=== PATIENT | male | born 1945 | race Caucasian/White ===

== ENCOUNTER → 2016-12-03 | Outpatient (CLI) | payer MEDICARE ==
[2016-12-03 16:20] LABS: ABSOLUTE BASOPHILS # (AUTO) 0.1 10^3/uL (0.0-0.2); ABSOLUTE EOSINOPHILS # (AUTO) 0.2 10^3/uL (0.0-0.6); ABSOLUTE LYMPHOCYTES (AUTO) 1.5 10^3/uL (0.5-4.7); ABSOLUTE MONOCYTES (AUTO) 0.6 10^3/uL (0.1-1.4); ABSOLUTE NEUT (AUTO) 5.6 10^3/uL (1.7-8.2); HEMATOCRIT 45.6 % (37.9-51.0); HEMOGLOBIN 15.4 g/dL (13.5-17.0); HGB HCT DIFFERENCE 0.6; LYMPHOCYTES % (AUTO) 19.2 % (13-45); MEAN CORPUSCULAR HEMOGLOBIN 29.6 pg (27.0-33.4); MEAN CORPUSCULAR HGB CONC 33.8 g/dL (32.0-36.0); MEAN CORPUSCULAR VOLUME 87 fl (80-97); MONOCYTES % (AUTO) 7.3 % (3-13); RED BLOOD COUNT 5.21 10^6/uL (4.35-5.55); RED CELL DISTRIBUTION WIDTH 15.3 % (11.5-14.0); SEGMENTED NEUTROPHILS % (AUTO) 69.5 % (42-78); WHITE BLOOD COUNT 8.1 10^3/uL (4.0-10.5)
[2016-12-03 16:34] LABS: APPEARANCE,URINE CLEAR; BILIRUBIN,URINE NEGATIVE (NEGATIVE); GLUCOSE, URINE NEGATIVE (NEGATIVE); KETONES,URINE NEGATIVE (NEGATIVE); LEUKOCYTE ESTERASE,URINE NEGATIVE (NEGATIVE); NITRITE,URINE NEGATIVE (NEGATIVE); PROTEIN,URINE NEGATIVE (NEGATIVE); URINE SPECIFIC GRAVITY 1.013; UROBILINOGEN,URINE NEGATIVE mg/dL (<2.0)
[2016-12-03 16:43] LABS: ALBUMIN 4.2 g/dL (3.5-5.0); ANION GAP 15 (5-19); BLOOD UREA NITROGEN 39 mg/dL (7-20); CALCIUM 9.9 mg/dL (8.4-10.2); CARBON DIOXIDE 25 mmol/L (22-30); CHLORIDE 103 mmol/L (98-107); CHOLESTEROL 162.83 mg/dL (0-200); CREATININE RESULT 1.96 mg/dL (0.52-1.25); Direct HDL 46 mg/dL (>40); GLUCOSE 137 mg/dL (75-110); PHOSPHORUS 3.7 mg/dL (2.5-4.5); SODIUM 142.5 mmol/L (137-145); TRIGLYCERIDES 168 mg/dL (<150); URIC ACID 7.5 mg/dL (3.5-8.5)
[2016-12-03 16:54] LABS: DIRECT LDL 96 mg/dL (<100)
[2016-12-03 16:59] LABS: VLDL CHOLESTEROL 33.6 mg/dL (10-31)
[2016-12-03 17:12] LABS: THYROID STIMULATING HORMONE 1.7 uIU/mL (0.47-4.68)
[2016-12-05 07:38] LABS: CREATININE URINE 94.2 mg/dL (Not Estab.)
[2016-12-05 10:10] LABS: MICROALBUMIN URINE <3.0 ug/mL (Not Estab.)
[2016-12-06 07:57] LABS: PTH INTACT 63 pg/mL (15-65)
[2016-12-06 13:22] LABS: VITAMIN D 25-HYDROXY 32.7 ng/mL (30.0-100.0)
== END ==
LOC: OD 14:48
PROVIDERS: ATTEND Internal Medicine Nephrology
DX: N18.3 Chronic kidney disease, stage 3 (moderate) (principal); E29.1 Testicular hypofunction; E03.9 Hypothyroidism, unspecified; E79.0 Hyperuricemia without signs of inflammatory arthritis and tophaceous disease
CPT/HCPCS: 36415; 80048; 80061; 81001; 82040; 82043; 82306; 82570; 83970; 84100; 84402; 84403; 84439; 84443; 84550; 85025

== ENCOUNTER → 2017-01-07 | Outpatient (CLI) | payer MEDICARE ==
[2017-01-07 13:30] LABS: ANION GAP 12 (5-19); BLOOD UREA NITROGEN 27 mg/dL (7-20); CALCIUM 9.7 mg/dL (8.4-10.2); CARBON DIOXIDE 26 mmol/L (22-30); CHLORIDE 101 mmol/L (98-107); CREATININE RESULT 1.92 mg/dL (0.52-1.25); GLUCOSE 145 mg/dL (75-110); POTASSIUM 4.8 mmol/L (3.6-5.0); SODIUM 139.3 mmol/L (137-145)
== END ==
LOC: OD 11:34
PROVIDERS: ATTEND Internal Medicine Nephrology
DX: N17.9 Acute kidney failure, unspecified (principal)
CPT/HCPCS: 36415; 80048

== ENCOUNTER → 2017-01-19 | Outpatient (CLI) | payer MEDICARE ==
--- NOTE | 2017-01-19 15:09 | RADIOLOGY REPORT (SQ) ---
EXAM DESCRIPTION: U/S RETROPERITON (RENAL/AORTA) COMPLETED DATE/TIME: 01/19/2017 2:46 pm REASON FOR STUDY: ACUTE ON CHRONIC RENAL FAILURE/CKD STAGE 3 N18.3 CHRONIC KIDNEY DISEASE, STAGE 3 (MODERATE) N17.9 ACUTE KIDNEY FAILURE, UNSPECIFIED COMPARISON: None. TECHNIQUE: Dynamic and static grayscale images acquired of the kidneys and bladder and recorded on P ACS. Additional selected color Doppler and spectral images recorded. LIMITATIONS: Body habitus. FINDINGS: RIGHT KIDNEY: Normal size. Increased cortical echogenicity. No solid or suspicious masses. No hydronephrosis. No calcifications. LEFT KIDNEY: Normal size. Increased cortical echogenicity. No solid or suspicious masses. No hydrone phrosis. No calcifications. BLADDER: No masses. OTHER: No other significant finding. IMPRESSION: CHRONIC MEDICAL RENAL DISEASE. NO HYDRONEPHROSIS. TECHNICAL DOCUMENTATION: JOB ID: [id number] [employer]- All Rights Reserved
== END ==
LOC: RAD 13:49
PROVIDERS: ATTEND Internal Medicine Nephrology
DX: N17.9 Acute kidney failure, unspecified (principal); N18.3 Chronic kidney disease, stage 3 (moderate)
CPT/HCPCS: 76770

== ENCOUNTER → 2017-02-12 | Outpatient (CLI) | payer MEDICARE ==
[2017-02-12 12:54] LABS: ANION GAP 12 (5-19); BLOOD UREA NITROGEN 22 mg/dL (7-20); CALCIUM 9.8 mg/dL (8.4-10.2); CARBON DIOXIDE 24 mmol/L (22-30); CHLORIDE 105 mmol/L (98-107); GLUCOSE 160 mg/dL (75-110); POTASSIUM 5.1 mmol/L (3.6-5.0); SODIUM 141.1 mmol/L (137-145)
== END ==
LOC: OD 10:44
PROVIDERS: ATTEND Internal Medicine Nephrology
DX: N17.9 Acute kidney failure, unspecified (principal); N18.3 Chronic kidney disease, stage 3 (moderate)
CPT/HCPCS: 36415; 80048

== ENCOUNTER → 2017-05-17 | Outpatient (CLI) | payer MEDICARE ==
[2017-05-17 17:05] LABS: ALANINE AMINOTRANSFERASE 42 U/L (21-72); ALBUMIN 4.2 g/dL (3.5-5.0); ALKALINE PHOSPHATASE 85 U/L (38-126); ANION GAP 11 (5-19); ASPARTATE AMINO TRANSFERASE 37 U/L (17-59); BILIRUBIN,DIRECT 0.6 mg/dL (0.0-0.4); BILIRUBIN,TOTAL 0.9 mg/dL (0.2-1.3); BLOOD UREA NITROGEN 30 mg/dL (7-20); CALCIUM 10.4 mg/dL (8.4-10.2); CARBON DIOXIDE 24 mmol/L (22-30); CHLORIDE 103 mmol/L (98-107); CREATININE RESULT 1.72 mg/dL (0.52-1.25); Direct HDL 46 mg/dL (>40); GLUCOSE 113 mg/dL (75-110); POTASSIUM 5.8 mmol/L (3.6-5.0); SODIUM 138.3 mmol/L (137-145); TOTAL PROTEIN 7.8 g/dL (6.3-8.2); TRIGLYCERIDES 130 mg/dL (<150); URIC ACID 7.3 mg/dL (3.5-8.5)
[2017-05-17 17:16] LABS: DIRECT LDL 100 mg/dL (<100)
[2017-05-17 17:32] LABS: THYROID STIMULATING HORMONE 1.69 uIU/mL (0.47-4.68)
[2017-05-20 07:05] LABS: TESTOSTERONE FREE (DIRECT) 11.6 pg/mL (6.6-18.1)
== END ==
LOC: OD 14:51
PROVIDERS: ATTEND Internal Medicine Nephrology
DX: N18.3 Chronic kidney disease, stage 3 (moderate) (principal); R73.03 Prediabetes; M10.9 Gout, unspecified; E29.1 Testicular hypofunction
CPT/HCPCS: 36415; 80053; 80061; 82043; 82570; 83036; 84402; 84403; 84439; 84443; 84550

== ENCOUNTER → 2017-05-18 | Outpatient (CLI) | payer MEDICARE | LOC: OD 16:42 | PROVIDERS: ATTEND Internal Medicine Nephrology | DX: E87.5 Hyperkalemia (principal) | CPT/HCPCS: 36415; 84132 ==

== ENCOUNTER → 2017-11-18 | Outpatient (CLI) | payer MEDICARE ==
[2017-11-18 15:45] LABS: ABSOLUTE BASOPHILS # (AUTO) 0.1 10^3/uL (0.0-0.2); ABSOLUTE EOSINOPHILS # (AUTO) 0.2 10^3/uL (0.0-0.6); ABSOLUTE MONOCYTES (AUTO) 0.7 10^3/uL (0.1-1.4); ABSOLUTE NEUT (AUTO) 4.8 10^3/uL (1.7-8.2); BASOPHILS % (AUTO) 0.8 % (0-2); EOSINOPHILS % (AUTO) 2.8 % (0-6); HEMATOCRIT 45.7 % (37.9-51.0); HEMOGLOBIN 15.2 g/dL (13.5-17.0); LYMPHOCYTES % (AUTO) 25.9 % (13-45); MEAN CORPUSCULAR HEMOGLOBIN 28.7 pg (27.0-33.4); MEAN CORPUSCULAR HGB CONC 33.2 g/dL (32.0-36.0); MEAN CORPUSCULAR VOLUME 87 fl (80-97); MONOCYTES % (AUTO) 8.4 % (3-13); PLATELET COUNT 209 10^3/uL (150-450); RED BLOOD COUNT 5.28 10^6/uL (4.35-5.55); RED CELL DISTRIBUTION WIDTH 15.3 % (11.5-14.0); SEGMENTED NEUTROPHILS % (AUTO) 62.1 % (42-78); TOTAL CELLS COUNTED % (AUTO) 100 %; WHITE BLOOD COUNT 7.8 10^3/uL (4.0-10.5)
[2017-11-18 16:17] LABS: ALANINE AMINOTRANSFERASE 48 U/L (21-72); ALBUMIN 4.1 g/dL (3.5-5.0); ALKALINE PHOSPHATASE 83 U/L (38-126); ANION GAP 9 (5-19); ASPARTATE AMINO TRANSFERASE 32 U/L (17-59); BILIRUBIN,DIRECT 0.3 mg/dL (0.0-0.4); BILIRUBIN,TOTAL 0.5 mg/dL (0.2-1.3); BLOOD UREA NITROGEN 21 mg/dL (7-20); CALCIUM 10.2 mg/dL (8.4-10.2); CARBON DIOXIDE 31 mmol/L (22-30); CHLORIDE 101 mmol/L (98-107); CHOLESTEROL 157.02 mg/dL (0-200); GLUCOSE 133 mg/dL (75-110); POTASSIUM 5.2 mmol/L (3.6-5.0); SODIUM 141.2 mmol/L (137-145); TOTAL PROTEIN 7.4 g/dL (6.3-8.2); TRIGLYCERIDES 185 mg/dL (<150)
[2017-11-18 16:27] LABS: DIRECT LDL 83 mg/dL (<100)
[2017-11-18 16:39] LABS: FREE T4 (FREE THYROXINE) 1.2 ng/dL (0.78-2.19)
[2017-11-18 16:53] LABS: THYROID STIMULATING HORMONE 2.13 uIU/mL (0.47-4.68)
[2017-11-20 09:37] LABS: CREATININE URINE 115.8 mg/dL (Not Estab.)
[2017-11-20 10:38] LABS: MICROALBUMIN URINE <3.0 ug/mL (Not Estab.)
[2017-11-21 07:12] LABS: TESTOSTERONE FREE (DIRECT) 13.5 pg/mL (6.6-18.1)
== END ==
LOC: OD 14:14
PROVIDERS: ATTEND Internal Medicine Nephrology
DX: E03.9 Hypothyroidism, unspecified (principal); E78.1 Pure hyperglyceridemia; E29.1 Testicular hypofunction; N18.9 Chronic kidney disease, unspecified; R73.03 Prediabetes
CPT/HCPCS: 82043; 82570; 36415; 84439; 84443; 84403; 85025; 80053; 84402; 83036; 80061; G0103

== ENCOUNTER → 2018-03-03 | Outpatient (CLI) | payer BC, MEDICARE ==
--- NOTE | 2018-03-03 16:55 | RADIOLOGY REPORT (SQ) ---
EXAM DESCRIPTION: CT CHEST WITHOUT COMPLETED DATE/TIME: 03/03/2018 1:47 pm REASON FOR STUDY: OTHER NONSPECIFIC ABNORMAL FINDING OF LUNG FIELD R91.8 OTHER NONSPECIFIC ABNORMAL FINDING OF LUNG FIELD COMPARISON: None. TECHNIQUE: CT scan performed of the chest without intravenous contrast. Images reviewed with lung, soft tissue and bone windows. Reconstructed coronal and sagittal MPR images reviewed. All images st ored on PACS. All CT scanners at this facility use dose modulation, iterative reconstruction, and/or weight based d osing when appropriate to reduce radiation dose to as low as reasonably achievable (ALARA). [facility]: Dose Right [facility]: CareDose [facility]: Dose Right [facility]: Teradose 4D [facility]: [employer] RADIATION DOSE: CT Rad equipment meets quality standard of care and radiation dose reduction techniq ues were employed. CTDIvol: 19.5 mGy. DLP: 768 mGy-cm. mGy. LIMITATIONS: No technical limitations. FINDINGS: LUNGS AND PLEURA: Minimal increased interstitial markings around the periphery of both garett gs likely mild pulmonary fibrosis. No acute infiltrates. No worrisome pulmonary nodules. No pleural effusion. No pneumothorax. HILAR AND MEDIASTINAL STRUCTURES: No identified masses or abnormal nodes. No obvious aneurysm. HEART AND VASCULAR STRUCTURES: No aneurysm. No pericardial effusion. Mild coronary artery calcifica tions UPPER ABDOMEN: Not well seen THYROID AND OTHER SOFT TISSUES: No masses. No adenopathy. BONES: There is an old healed fracture in the right posterior 6th rib with bulky bony spurring and de nse bony sclerosis on axial image 49. This could project as a lung nodule over the right upper lobe HARDWARE: None in the chest. OTHER: No other significant findings. IMPRESSION: Bony sclerosis along the right posterior 6th rib/costovertebral joint related to old hea led fracture. TECHNICAL DOCUMENTATION: JOB ID: [id number] Quality ID # [id number]: Final reports with documentation of one or more dose reduction techniques (e.g., Au tomated exposure control, adjustment of the mA and/or kV according to patient size, use of iterative reconstruction technique) 2010 [employer]- All Rights Reserved Reading location - IP/workstation name: [email or web address]
== END ==
LOC: RAD 13:13
PROVIDERS: ATTEND Internal Medicine Critical Care Medicine
DX: R91.8 Other nonspecific abnormal finding of lung field (principal)
CPT/HCPCS: 71250

== ENCOUNTER → 2018-05-09 | Outpatient (CLI) | payer MEDICARE | LOC: OD 16:37 | PROVIDERS: ATTEND Internal Medicine Nephrology | DX: E87.5 Hyperkalemia (principal) | CPT/HCPCS: 36415; 84132 ==

== ENCOUNTER → 2018-11-16 | Outpatient (CLI) | payer MEDICARE ==
[2018-11-16 13:24] LABS: ALANINE AMINOTRANSFERASE 39 U/L (21-72); ALKALINE PHOSPHATASE 84 U/L (38-126); ANION GAP 9 (5-19); ASPARTATE AMINO TRANSFERASE 28 U/L (17-59); BILIRUBIN,DIRECT 0.3 mg/dL (0.0-0.4); BILIRUBIN,TOTAL 0.5 mg/dL (0.2-1.3); BLOOD UREA NITROGEN 26 mg/dL (7-20); CALCIUM 9.9 mg/dL (8.4-10.2); CARBON DIOXIDE 27 mmol/L (22-30); CHLORIDE 102 mmol/L (98-107); CHOLESTEROL 129.59 mg/dL (0-200); GLUCOSE 114 mg/dL (75-110); PHOSPHORUS 3.5 mg/dL (2.5-4.5); POTASSIUM 4.8 mmol/L (3.6-5.0); SODIUM 137.9 mmol/L (137-145); TOTAL PROTEIN 7.7 g/dL (6.3-8.2); TRIGLYCERIDES 121 mg/dL (<150)
[2018-11-16 13:35] LABS: DIRECT LDL 84 mg/dL (<100)
[2018-11-16 13:40] LABS: FREE T4 (FREE THYROXINE) 1.39 ng/dL (0.78-2.19)
[2018-11-16 13:54] LABS: THYROID STIMULATING HORMONE 2.02 uIU/mL (0.47-4.68)
[2018-11-16 16:24] LABS: APPEARANCE,URINE CLEAR; BILIRUBIN,URINE NEGATIVE (NEGATIVE); COLOR,URINE YELLOW; GLUCOSE, URINE NEGATIVE (NEGATIVE); KETONES,URINE NEGATIVE (NEGATIVE); LEUKOCYTE ESTERASE,URINE NEGATIVE (NEGATIVE); NITRITE,URINE NEGATIVE (NEGATIVE); PROTEIN,URINE NEGATIVE (NEGATIVE); URINE SPECIFIC GRAVITY 1.017; UROBILINOGEN,URINE NEGATIVE mg/dL (<2.0)
[2018-11-17 13:00] LABS: TESTOSTERONE FREE (DIRECT) 15.9 pg/mL (6.6-18.1)
[2018-11-18 10:37] LABS: CREATININE URINE 129.3 mg/dL (Not Estab.)
[2018-11-19 07:45] LABS: MICROALBUMIN URINE <3.0 ug/mL (Not Estab.)
== END ==
LOC: OD 12:27
PROVIDERS: ATTEND Internal Medicine Nephrology
DX: N18.3 Chronic kidney disease, stage 3 (moderate) (principal); R73.03 Prediabetes; E78.1 Pure hyperglyceridemia; E29.1 Testicular hypofunction; E03.9 Hypothyroidism, unspecified
CPT/HCPCS: 36415; 80053; 80061; 81001; 82043; 82306; 82570; 83036; 83970; 84100; 84402; 84403; 84439; 84443

== ENCOUNTER → 2019-05-25 | Outpatient (CLI) | payer MEDICARE ==
[2019-05-25 13:46] LABS: ABSOLUTE BASOPHILS # (AUTO) 0.1 10^3/uL (0.0-0.2); ABSOLUTE EOSINOPHILS # (AUTO) 0.2 10^3/uL (0.0-0.6); ABSOLUTE LYMPHOCYTES (AUTO) 1.9 10^3/uL (0.5-4.7); ABSOLUTE MONOCYTES (AUTO) 0.5 10^3/uL (0.1-1.4); ABSOLUTE NEUT (AUTO) 3.8 10^3/uL (1.7-8.2); BASOPHILS % (AUTO) 0.8 % (0-2); EOSINOPHILS % (AUTO) 2.6 % (0-6); HEMATOCRIT 46.9 % (37.9-51.0); HEMOGLOBIN 15.4 g/dL (13.5-17.0); LYMPHOCYTES % (AUTO) 29.6 % (13-45); MEAN CORPUSCULAR HEMOGLOBIN 27.2 pg (27.0-33.4); MEAN CORPUSCULAR HGB CONC 32.8 g/dL (32.0-36.0); MEAN CORPUSCULAR VOLUME 83 fl (80-97); MONOCYTES % (AUTO) 8.3 % (3-13); PLATELET COUNT 215 10^3/uL (150-450); RED BLOOD COUNT 5.67 10^6/uL (4.35-5.55); SEGMENTED NEUTROPHILS % (AUTO) 58.7 % (42-78); TOTAL CELLS COUNTED % (AUTO) 100 %; WHITE BLOOD COUNT 6.5 10^3/uL (4.0-10.5)
[2019-05-25 13:55] LABS: APPEARANCE,URINE CLEAR; BILIRUBIN,URINE NEGATIVE (NEGATIVE); COLOR,URINE YELLOW; GLUCOSE, URINE NEGATIVE (NEGATIVE); KETONES,URINE NEGATIVE (NEGATIVE); LEUKOCYTE ESTERASE,URINE NEGATIVE (NEGATIVE); NITRITE,URINE NEGATIVE (NEGATIVE); PROTEIN,URINE NEGATIVE (NEGATIVE); URINE SPECIFIC GRAVITY 1.014; UROBILINOGEN,URINE NEGATIVE mg/dL (<2.0)
[2019-05-25 13:57] LABS: ALBUMIN 4.4 g/dL (3.5-5.0); ALKALINE PHOSPHATASE 84 U/L (38-126); ANION GAP 10 (5-19); ASPARTATE AMINO TRANSFERASE 23 U/L (17-59); BILIRUBIN,DIRECT 0.2 mg/dL (0.0-0.4); BILIRUBIN,TOTAL 0.7 mg/dL (0.2-1.3); BLOOD UREA NITROGEN 42 mg/dL (7-20); CALCIUM 10.6 mg/dL (8.4-10.2); CARBON DIOXIDE 28 mmol/L (22-30); CHLORIDE 101 mmol/L (98-107); CHOLESTEROL 127.02 mg/dL (0-200); GLUCOSE 110 mg/dL (75-110); POTASSIUM 5.1 mmol/L (3.6-5.0); TOTAL PROTEIN 7.9 g/dL (6.3-8.2); TRIGLYCERIDES 84 mg/dL (<150)
[2019-05-25 14:08] LABS: DIRECT LDL 74 mg/dL (<100)
[2019-05-25 14:13] LABS: FREE T4 (FREE THYROXINE) 1.71 ng/dL (0.78-2.19)
[2019-05-25 14:27] LABS: THYROID STIMULATING HORMONE 0.23 uIU/mL (0.47-4.68)
[2019-05-26 10:36] LABS: CREATININE URINE 102.6 mg/dL (Not Estab.)
[2019-05-26 15:57] LABS: MICROALBUMIN URINE <3.0 ug/mL (Not Estab.)
[2019-05-27 06:50] LABS: TESTOSTERONE FREE (DIRECT) 13.5 pg/mL (6.6-18.1)
== END ==
LOC: OD 13:08
PROVIDERS: ATTEND Internal Medicine Nephrology
DX: I12.9 Hypertensive chronic kidney disease with stage 1 through stage 4 chronic kidney disease, or unspecified chronic kidney disease (principal); N18.3 Chronic kidney disease, stage 3 (moderate); R73.03 Prediabetes; E29.1 Testicular hypofunction
CPT/HCPCS: 36415; 80053; 80061; 81001; 82043; 82570; 83036; 83970; 84402; 84403; 84439; 84443; 85025

== ENCOUNTER → 2019-11-21 | Outpatient (CLI) | payer MEDICARE ==
[2019-11-21 13:55] LABS: ALBUMIN 3.9 g/dL (3.5-5.0); ALKALINE PHOSPHATASE 106 U/L (38-126); ANION GAP 6 (5-19); ASPARTATE AMINO TRANSFERASE 34 U/L (17-59); BILIRUBIN,TOTAL 0.5 mg/dL (0.2-1.3); BLOOD UREA NITROGEN 41 mg/dL (7-20); CALCIUM 9.8 mg/dL (8.4-10.2); CARBON DIOXIDE 27 mmol/L (22-30); CHLORIDE 106 mmol/L (98-107); CHOLESTEROL 136.74 mg/dL (0-200); GLUCOSE 121 mg/dL (75-110); POTASSIUM 5.3 mmol/L (3.6-5.0); TOTAL PROTEIN 7.3 g/dL (6.3-8.2); TRIGLYCERIDES 100 mg/dL (<150)
[2019-11-21 14:07] LABS: DIRECT LDL 83 mg/dL (<100)
[2019-11-21 14:12] LABS: FREE T4 (FREE THYROXINE) 1.29 ng/dL (0.78-2.19)
[2019-11-21 14:26] LABS: THYROID STIMULATING HORMONE 0.51 uIU/mL (0.47-4.68)
--- NOTE | 2019-11-21 21:48 | EKG REPORT ---
SEVERITY:- NORMAL ECG - SINUS RHYTHM : Confirmed by: Traci Lopez MD 21-Nov-2019 21:46:56
== END ==
LOC: OD 12:44
PROVIDERS: ATTEND Internal Medicine Nephrology
DX: I12.9 Hypertensive chronic kidney disease with stage 1 through stage 4 chronic kidney disease, or unspecified chronic kidney disease (principal); N18.3 Chronic kidney disease, stage 3 (moderate); E78.5 Hyperlipidemia, unspecified; R73.03 Prediabetes
CPT/HCPCS: 36415; 80053; 80061; 82306; 83036; 84402; 84403; 84439; 84443; 93005; 93010

== ENCOUNTER 2019-12-27 11:36 | Emergency (ER) | payer MEDICARE ==
[2019-12-27] MEDS: NORMAL SALINE 1000 ML 1,000 ML IV PRN ×4 (11:50→12:55)
[2019-12-27] MEDS ORDERED: CEFEPIME 2 GM/D5W RTU 2 GM/50 ML RTUPB IV ONE (12:07)
[2019-12-27] MEDS ORDERED: VANCOMYCIN HCL INJ 1000 MG VIAL IV ONE (12:07)
[2019-12-27] MEDS ORDERED: DEXTROSE 5%-WATER 250 ML with NOREPINEPHRINE BITARTRATE 4 MG IV PRN ×2 (12:27)
[2019-12-27] MEDS ORDERED: PANTOPRAZOLE SODIUM 40 MG VIAL IV ONE (12:31)
[2019-12-27] MEDS ORDERED: NOREPINEPHRINE BITARTRATE INJ/PF 4 MG/4 ML SDV IV ONE ×2 (12:33→17:16)
[2019-12-27 13:29] LABS: VENOUS BLOOD BASE EXCESS -23.1 mmol/L; VENOUS BLOOD HCO3 9.4 mmol/L (20-32); VENOUS BLOOD PCO2 45.6 mmHg (35-63)
[2019-12-27 13:32] LABS: HEMATOCRIT 48.2 % (37.9-51.0); HEMOGLOBIN 15.8 g/dL (13.5-17.0); MEAN CORPUSCULAR HEMOGLOBIN 28.2 pg (27.0-33.4); MEAN CORPUSCULAR HGB CONC 32.8 g/dL (32.0-36.0); MEAN CORPUSCULAR VOLUME 86 fl (80-97); PLATELET COUNT 321 10^3/uL (150-450); RED CELL DISTRIBUTION WIDTH 16.6 % (11.5-14.0); VENOUS BLOOD PH 6.93 (7.30-7.42); WHITE BLOOD COUNT 20.8 10^3/uL (4.0-10.5)
[2019-12-27 13:33] LABS: INTERNATIONAL RATION (INR) 1.32; PROTHROMBIN TIME 16.5 SEC (11.4-15.4)
[2019-12-27 13:34] LABS: PARTIAL THROMBOPLASTIN TIME 26.5 SEC (23.5-35.8)
[2019-12-27] MEDS ORDERED: RINGERS SOLUTION,LACTATED 1,000 ML IV ONE (13:37)
[2019-12-27 13:51] LABS: D-DIMER 12.86 ug/mL (0.00-0.50)
[2019-12-27 13:53] LABS: ALBUMIN 3.3 g/dL (3.5-5.0); ALKALINE PHOSPHATASE 91 U/L (38-126); ASPARTATE AMINO TRANSFERASE 462 U/L (17-59); BILIRUBIN,TOTAL 0.3 mg/dL (0.2-1.3); CALCIUM 8.4 mg/dL (8.4-10.2); GLUCOSE 123 mg/dL (75-110); TOTAL PROTEIN 6.6 g/dL (6.3-8.2)
[2019-12-27 13:58] LABS: CHLORIDE 104 mmol/L (98-107)
[2019-12-27 13:59] LABS: ABSOLUTE LYMPHOCYTES# (MANUAL) 1.5 10^3/uL (0.5-4.7); ANISOCYTOSIS 1+; BAND NEUTROPHILS % (MANUAL) 1 % (3-5); BASOPHILS % (MANUAL) 0 % (0-2); EOSINOPHILS % (MANUAL) 0 % (0-6); LYMPHOCYTES % (MANUAL) 7 % (13-45); MONOCYTES % (MANUAL) 5 % (3-13); PLATELET COMMENT ADEQUATE; SEGMENTED NEUTROPHILS % (MAN) 87 % (42-78); TOTAL CELLS COUNTED 100
[2019-12-27 14:00] LABS: PLATELET CLUMPS PRESENT; RBC MORPHOLOGY COMMENT NORMO-CYTIC/CHROMIC; TOXIC VACUOLATION PRESENT
[2019-12-27 14:04] LABS: TROPONIN I 0.016 ng/mL
[2019-12-27 14:05] LABS: ACETAMINOPHEN < 10 ug/mL (10-30); ALCOHOL < 10 mg/dL (NONE DETECTED); BLOOD UREA NITROGEN 134 mg/dL (7-20)
[2019-12-27 14:06] LABS: APPEARANCE,URINE CLOUDY; BILIRUBIN,URINE NEGATIVE (NEGATIVE); COLOR,URINE AMBER; GLUCOSE, URINE 50 mg/dL (NEGATIVE); KETONES,URINE NEGATIVE (NEGATIVE); LEUKOCYTE ESTERASE,URINE MODERATE (NEGATIVE); NITRITE,URINE NEGATIVE (NEGATIVE); PROTEIN,URINE 30 mg/dL (NEGATIVE); URINE SPECIFIC GRAVITY 1.021; UROBILINOGEN,URINE NEGATIVE mg/dL (<2.0)
[2019-12-27 14:06] LABS: POTASSIUM 6.5 mmol/L (3.6-5.0)
[2019-12-27 14:07] LABS: ANION GAP 23 (5-19); CARBON DIOXIDE 10 mmol/L (22-30)
[2019-12-27] MEDS ORDERED: SODIUM BICARBONATE 8.4% INJ 50 MEQ/50 ML DISP.SYRIN IV ONE ×2 (14:15→18:23)
[2019-12-27] MEDS ORDERED: DEXTROSE 50%-WATER 25 GM/50 ML DISP.SYRIN IV ONE (14:16)
[2019-12-27] MEDS ORDERED: CALCIUM GLUCONATE 1000 MG/10 ML INJ IV ONE ×2 (14:16→18:24)
[2019-12-27] MEDS ORDERED: INSULIN REG, HUMAN 100 UNIT/ML 3 ML VIAL (PYX) IV ONE (14:17)
[2019-12-27] MEDS ORDERED: SODIUM POLYSTYRENE SULFONATE 15 GM/60 ML PR ONE (14:18)
[2019-12-27 14:21] LABS: URINE AMPHETAMINES SCREEN NEGATIVE; URINE BARBITURATES SCREEN NEGATIVE; URINE BENZODIAZEPINES SCREEN NEGATIVE; URINE COCAINE SCREEN NEGATIVE; URINE MARIJUANA (THC) SCREEN NEGATIVE; URINE METHADONE SCREEN NEGATIVE; URINE PHENCYCLIDINE SCREEN NEGATIVE
[2019-12-27] MEDS ORDERED: DEXTROSE 5%-WATER 1000 ML 1,000 ML with SODIUM BICARBONATE 150 MEQ IV PRN ×4 (14:21→14:50)
[2019-12-27 14:29] LABS: A TYPE INFLUENZA AG NEGATIVE (NEGATIVE); B INFLUENZA AG NEGATIVE (NEGATIVE)
[2019-12-27 14:45] LABS: CREATINE KINASE 28572 U/L (55-170)
--- NOTE | 2019-12-27 15:46 | PDOC CRITICAL CARE PROG REPORT ---
General Date:: 12/27/19 Hospital Day:: 1 Resuscitation Status: Full Code Events in the past 12 to 24 Hours:: Found down for up to 2 days as far as we know. Review of systems relevant to events:: Renal, CV, Neurological Reason for ICU Addmission:: On levophed but needs emergant dialysis. - Medications: Medications reviewed and adjusted accordingly: Yes Vasopressors:: Levophed Sedation:: None Physical Exam Vital Signs: Temp Pulse Resp BP Pulse Ox 94.9 F L 97 13 75/31 L 100 12/27/19 15:21 12/27/19 11:38 12/27/19 15:21 12/27/19 15:21 12/27/19 15:21 Intake & Output 12/26/19 12/27/19 12/28/19 06:59 06:59 06:59 Intake Total 4093 Balance 4093 Weight 122 kg Weight/Height Weight 122 kg General appearance: PRESENT: no acute distress, disheveled, obese Head exam: PRESENT: atraumatic, normocephalic Eye exam: PRESENT: conjunctival injection Ear exam: PRESENT: normal external ear exam Mouth exam: PRESENT: dry mucosa Respiratory exam: PRESENT: clear to auscultation nadeem. ABSENT: rales, rhonchi, wheezes Cardiovascular exam: PRESENT: tachycardia GI/Abdominal exam: PRESENT: normal bowel sounds, soft. ABSENT: distended, guarding, mass, organolmegaly, rebound, tenderness Rectal exam: PRESENT: deferred Gentrourinary exam: PRESENT: indwelling catheter Extremities exam: PRESENT: full ROM. ABSENT: calf tenderness, clubbing, pedal edema Musculoskeletal exam: PRESENT: normal inspection Neurological exam: PRESENT: altered, other - Nearly obtunded Skin exam: PRESENT: dry, intact, warm. ABSENT: cyanosis, rash Laboratory/Radiographs Laboratory Results: 12/27/19 13:05 12/27/19 13:05 12/27/19 12/27/19 12/27/19 13:05 13:05 13:05 WBC 20.8 H RBC 5.60 H Hgb 15.8 Hct 48.2 MCV 86 MCH 28.2 MCHC 32.8 RDW 16.6 H Plt Count 321 Seg Neutrophils % Not Reportable VBG pH 6.93 L* VBG pCO2 45.6 VBG HCO3 9.4 L VBG Base Excess -23.1 Sodium 137.4 Potassium 6.5 H* Chloride 104 Carbon Dioxide 10 L* Anion Gap 23 H BUN 134 H Creatinine 13.65 H Est GFR ( Amer) 4 L Glucose 123 H Lactic Acid Calcium 8.4 Total Bilirubin 0.3 AST 462 H Alkaline Phosphatase 91 Ammonia Total Protein 6.6 Albumin 3.3 L Lipase 271.7 Urine Color Urine Appearance Urine pH Ur Specific [place] Urine Protein Urine Glucose (UA) Urine Ketones Urine Blood Urine Nitrite Ur Leukocyte Esterase Urine WBC (Auto) Urine RBC (Auto) 12/27/19 12/27/19 12/27/19 13:05 13:36 14:19 WBC RBC Hgb Hct MCV MCH MCHC RDW Plt Count Seg Neutrophils % VBG pH VBG pCO2 VBG HCO3 VBG Base Excess Sodium Potassium Chloride Carbon Dioxide Anion Gap BUN Creatinine Est GFR ( Amer) Glucose Lactic Acid 4.7 H Calcium Total Bilirubin AST Alkaline Phosphatase Ammonia 53.9 H Total Protein Albumin Lipase Urine Color CHRIS Urine Appearance CLOUDY Urine pH 5.0 Ur Specific [place] 1.021 Urine Protein 30 H Urine Glucose (UA) 50 H Urine Ketones NEGATIVE Urine Blood SMALL H Urine Nitrite NEGATIVE Ur Leukocyte Esterase MODERATE H Urine WBC (Auto) 3 Urine RBC (Auto) 3 12/27/19 12/27/19 13:05 13:05 Creatine Kinase 36235 H Troponin I 0.016 NT-Pro-B Natriuret Pep 451 H Impressions: Acute renal failure on CKD EKG: Sinus tachycardia. 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 His current Cr is > 13 with K 6.5, bicarb 10, CK 28,500. He needs emergant dialysis. have spoken to Dr. Granados and due to lack of resources cannot be done today. He will need transfer to receive this. (2) Hyperammonemia Is this a current diagnosis for this admission?: Yes Plan: Ast and ALT arfe elevated but ammonia is 54. I'm sure this is contributing to his mental status. (3) Dehydration Is this a current diagnosis for this admission?: Yes Plan: He has received 4 L thus far and is on levophed with SBP only 90. Cortisol pending. (4) Hypotension Qualifiers: Hypotension type: hypotension due to hypovolemia Qualified Code(s): I95.89 - Other hypotension; E86.1 - Hypovolemia Is this a current diagnosis for this admission?: Yes Plan: With his BP and need for levophed and HD he may well be a CRRT candidate which we do not do here. (5) Lactic acid acidosis Is this a current diagnosis for this admission?: Yes Plan: Level 4.7. This should come down with rehydration. (6) Hyperkalemia Is this a current diagnosis for this admission?: Yes Plan: With a level of 6.5 and GFR 4 and rhabdomyolysis. I dont see his potassium decreasing without dialysis. Plan Summary: Transfer to center to receive dialysis. Critical Time Critical Time (minutes): 40 Level of Care: ICU Anticipated discharge: [facility] Within: Other - Now. -: 1. The care of a critical patient is a dynamic process. This note is a re presentative synopsis but static in nature. The timeframe for treatments given in order is not necessarily the actual time these treatments may have been done. 2. This patient requires critical care secondary to ongoing requirements for therapy not offered or safe outside the critical care environment. Transfer to a lower level of care will result in altered life or limb morbidity and mortalit y. 3. Multidisciplinary rounds completed. 4. ABCDE bundle addressed.
--- NOTE | 2019-12-27 16:07 | RADIOLOGY REPORT (SQ) ---
EXAM DESCRIPTION: CT HEAD WITHOUT IMAGES COMPLETED DATE/TIME: 12/27/2019 3:53 pm REASON FOR STUDY: altered mental status/hypotension COMPARISON: None. TECHNIQUE: Axial images acquired through the brain without intravenous contrast. Images reviewed wi th bone, brain and subdural windows. Additional sagittal and coronal reconstructions were generated. Images stored on PACS. All CT scanners at this facility use dose modulation, iterative reconstruction, and/or weight based d osing when appropriate to reduce radiation dose to as low as reasonably achievable (ALARA). [facility]: Dose Right [facility]: CareDose [facility]: Dose Right [facility]: Teradose 4D [facility]: [employer] RADIATION DOSE: CT Rad equipment meets quality standard of care and radiation dose reduction techniq ues were employed. CTDIvol: 53.2 mGy. DLP: 1150 mGy-cm. mGy. LIMITATIONS: None. FINDINGS: VENTRICLES: Prominent. CEREBRUM: No masses. No hemorrhage. No midline shift. Areas of low density in the white matter mos t likely due to chronic micro-vascular ischemic change. No evidence for acute infarction. CEREBELLUM: No masses. No hemorrhage. No alteration of density. No evidence for acute infarction. EXTRAAXIAL SPACES: Mild age-related involutional change. No fluid collections. No masses. ORBITS AND GLOBE: No intra- or extraconal masses. Normal contour of globe without masses. CALVARIUM: No fracture. PARANASAL SINUSES: No fluid or mucosal thickening. SOFT TISSUES: No mass or hematoma. OTHER: No other significant finding. IMPRESSION: MILD CHRONIC CHANGES OF ATROPHY AND MICROVASCULAR ISCHEMIA. NO ACUTE PROCESS. EVIDENCE OF ACUTE STROKE: NO. TECHNICAL DOCUMENTATION: JOB ID: [id number] Quality ID # [id number]: Final reports with documentation of one or more dose reduction techniques (e.g., Au tomated exposure control, adjustment of the mA and/or kV according to patient size, use of iterative reconstruction technique) 2010 [employer]- All Rights Reserved Reading location - IP/workstation name: [email or web address]
--- NOTE | 2019-12-27 16:08 | RADIOLOGY REPORT (SQ) ---
EXAM DESCRIPTION: CT CERVICAL SPINE WITHOUT IMAGES COMPLETED DATE/TIME: 12/27/2019 3:53 pm REASON FOR STUDY: altered mental status COMPARISON: None. TECHNIQUE: Axial images acquired through the cervical spine without intravenous contrast. Images re viewed with lung, soft tissue and bone windows. Reconstructed coronal and sagittal MPR images review ed. Images stored on PACS. All CT scanners at this facility use dose modulation, iterative reconstruction, and/or weight based d osing when appropriate to reduce radiation dose to as low as reasonably achievable (ALARA). [facility]: Dose Right [facility]: CareDose [facility]: Dose Right [facility]: Teradose 4D [facility]: [employer] RADIATION DOSE: CT Rad equipment meets quality standard of care and radiation dose reduction techniq ues were employed. CTDIvol: 27.5 mGy. DLP: 609 mGy-cm. mGy. LIMITATIONS: None. FINDINGS: ALIGNMENT: Anatomic. MINERALIZATION: Normal. VERTEBRAL BODIES: No fractures or dislocation. DISCS: Multilevel disc space narrowing with osteophytes. FACETS, LATERAL MASSES, POSTERIOR ELEMENTS: Facet arthropathy. No fractures. No dislocation. No ac [place] findings. HARDWARE: None in the spine. VISUALIZED RIBS: No fractures. LUNG APICES AND SOFT TISSUES: No significant or acute findings. OTHER: No other significant finding. IMPRESSION: CHRONIC DEGENERATIVE CHANGES. NO ACUTE FINDINGS. TECHNICAL DOCUMENTATION: JOB ID: [id number] Quality ID # [id number]: Final reports with documentation of one or more dose reduction techniques (e.g., Au tomated exposure control, adjustment of the mA and/or kV according to patient size, use of iterative reconstruction technique) 2010 [employer]- All Rights Reserved Reading location - IP/workstation name: [email or web address]
--- NOTE | 2019-12-27 16:10 | RADIOLOGY REPORT (SQ) ---
EXAM DESCRIPTION: CT CHEST WITHOUT IMAGES COMPLETED DATE/TIME: 12/27/2019 3:53 pm REASON FOR STUDY: altered mental status COMPARISON: 03/03/2018 TECHNIQUE: CT scan performed of the chest without intravenous contrast. Images reviewed with lung, soft tissue and bone windows. Reconstructed coronal and sagittal MPR images reviewed. All images st ored on PACS. All CT scanners at this facility use dose modulation, iterative reconstruction, and/or weight based d osing when appropriate to reduce radiation dose to as low as reasonably achievable (ALARA). [facility]: Dose Right [facility]: CareDose [facility]: Dose Right [facility]: Teradose 4D [facility]: [employer] RADIATION DOSE: CT Rad equipment meets quality standard of care and radiation dose reduction techniq ues were employed. CTDIvol: 20.6 mGy. DLP: 1698 mGy-cm. mGy. LIMITATIONS: Motion artifact. FINDINGS: LUNGS AND PLEURA: No masses, infiltrates, or pneumothorax. No pleural effusions or pleura l calcifications. HILAR AND MEDIASTINAL STRUCTURES: No identified masses or abnormal nodes. No obvious aneurysm. HEART AND VASCULAR STRUCTURES: No aneurysm. No pericardial effusion. UPPER ABDOMEN: See separate report of the CT of the abdomen. THYROID AND OTHER SOFT TISSUES: No masses. No adenopathy. BONES: Nothing acute. HARDWARE: None in the chest. OTHER: No other significant findings. IMPRESSION: No acute findings. TECHNICAL DOCUMENTATION: JOB ID: [id number] Quality ID # [id number]: Final reports with documentation of one or more dose reduction techniques (e.g., Au tomated exposure control, adjustment of the mA and/or kV according to patient size, use of iterative reconstruction technique) 2010 [employer]- All Rights Reserved Reading location - IP/workstation name: [email or web address]
--- NOTE | 2019-12-27 16:15 | RADIOLOGY REPORT (SQ) ---
EXAM DESCRIPTION: CT ABD/PELVIS NO ORAL OR IV IMAGES COMPLETED DATE/TIME: 12/27/2019 3:53 pm REASON FOR STUDY: altered mental status COMPARISON: None. TECHNIQUE: CT scan of the abdomen and pelvis performed without intravenous or oral contrast. Images reviewed with lung, soft tissue, and bone windows. Reconstructed coronal and sagittal MPR images revi ewed. All images stored on PACS. All CT scanners at this facility use dose modulation, iterative reconstruction, and/or weight based d osing when appropriate to reduce radiation dose to as low as reasonably achievable (ALARA). [facility]: Dose Right [facility]: CareDose [facility]: Dose Right [facility]: Teradose 4D [facility]: [email or web address] RADIATION DOSE: mGy. LIMITATIONS: Artifact from positioning and motion. FINDINGS: LOWER CHEST: See separate report of the CT of the chest. NON-CONTRASTED LIVER, SPLEEN, ADRENALS: Evaluation limited by lack of IV contrast. No identified sign ificant masses. PANCREAS: No masses. No peripancreatic inflammatory changes. GALLBLADDER: Surgically absent. RIGHT KIDNEY AND URETER: No suspicious masses. Assessment limited by lack of IV contrast. No signif icant calcifications. No hydronephrosis or hydroureter. LEFT KIDNEY AND URETER: No suspicious masses. Assessment limited by lack of IV contrast. No signifi cant calcifications. No hydronephrosis or hydroureter. AORTA AND RETROPERITONEUM: No aneurysm. No retroperitoneal masses or adenopathy. BOWEL AND PERITONEAL CAVITY: Left lower quadrant anterior hernia containing loop of small bowel diame ter upper limits of normal. No ascites. APPENDIX: Not visualized. PELVIS, BLADDER, AND ABDOMINAL WALL:Hdz catheter in urinary bladder. BONES: Nothing acute. OTHER: No other significant finding. IMPRESSION: No fracture or solid organ injury. Left lower quadrant anterior hernia containing small bowel diameter upper limits of normal. Cannot e xclude intermittent incarcerated hernia. COMMENT: Quality ID # [id number]: Final reports with documentation of one or more dose reduction techniques (e.g., Automated exposure control, adjustment of the mA and/or kV according to patient size, use of iterative reconstruction technique) TECHNICAL DOCUMENTATION: JOB ID: [id number] 2010 [employer]- All Rights Reserved Reading location - IP/workstation name: [email or web address]
[2019-12-27 16:17] LABS: C DIFFICILE GDH NEGATIVE (NEGATIVE)
[2019-12-27] MEDS ORDERED: DEXTROSE 5%-WATER 250 ML with EPINEPHRINE/PF 1 MG IV PRN ×2 (16:32)
--- NOTE | 2019-12-27 16:32 | RADIOLOGY REPORT (SQ) ---
EXAM DESCRIPTION: FEMUR RIGHT IMAGES COMPLETED DATE/TIME: 12/27/2019 4:03 pm REASON FOR STUDY: pain COMPARISON: None. NUMBER OF VIEWS: Two views. TECHNIQUE: Two radiographic images acquired of the right femur to include hip and knee in at least o ne projection. LIMITATIONS: None. FINDINGS: MINERALIZATION: Normal. BONES: No acute fracture. No worrisome bone lesions. SOFT TISSUES: No obvious swelling or foreign body. OTHER: No other significant finding. IMPRESSION: NEGATIVE STUDY OF THE RIGHT FEMUR. NO RADIOGRAPHIC EVIDENCE OF ACUTE INJURY. TECHNICAL DOCUMENTATION: JOB ID: [id number] 2010 [employer] All Rights Reserved Reading location - IP/workstation name: [email or web address]
[2019-12-27] MEDS ORDERED: SODIUM BICARBONATE 8.4% INJ 50 MEQ/50 ML DISP.SYRIN ONE ×2 (16:33→16:34)
[2019-12-27] MEDS ORDERED: EPINEPHRINE INJ/PF 1 MG/1 ML AMPULE ONE (17:00)
[2019-12-27 17:26] LABS: CALCIUM 8.5 mg/dL (8.4-10.2); GLUCOSE 104 mg/dL (75-110)
[2019-12-27 17:31] LABS: CHLORIDE 104 mmol/L (98-107)
[2019-12-27 17:43] LABS: BLOOD UREA NITROGEN 132 mg/dL (7-20)
[2019-12-27 17:45] LABS: ANION GAP 23 (5-19); CARBON DIOXIDE 10 mmol/L (22-30)
[2019-12-27] MEDS ORDERED: ALBUTEROL SULFATE 0.083% NEB 2.5 MG/3 ML AMPUL NEB ONE (17:53)
[2019-12-27] MEDS ORDERED: VASOPRESSIN INJ 20 UNIT/1 ML VIAL ONE (18:08)
[2019-12-27] MEDS ORDERED: DEXTROSE 5%-WATER 250 ML with VASOPRESSIN 100 UNIT IV PRN ×2 (18:09)
[2019-12-27] MEDS ORDERED: MIDAZOLAM 2 MG/2 ML INJ IV ONE ×2 (18:24→18:31)
[2019-12-27] MEDS ORDERED: MIDAZOLAM HCL 50 MG/100 ML RTUINJ IV PRN (18:25)
--- NOTE | 2019-12-27 18:26 | RADIOLOGY REPORT (SQ) ---
EXAM DESCRIPTION: CHEST SINGLE VIEW IMAGES COMPLETED DATE/TIME: 12/27/2019 6:09 pm REASON FOR STUDY: Central line placement COMPARISON: None. EXAM PARAMETERS: NUMBER OF VIEWS: One view. TECHNIQUE: Single frontal radiographic view of the chest acquired. RADIATION DOSE: NA LIMITATIONS: None. FINDINGS: LUNGS AND PLEURA: No pneumothorax. No acute pulmonary consolidation. No pleural effusio n. MEDIASTINUM AND HILAR STRUCTURES: No masses. Contour normal. HEART AND VASCULAR STRUCTURES: Heart normal in size. Normal vasculature. BONES: Old right 6th rib fracture. HARDWARE: Status post placement of right internal jugular central line with the tip in the region of the SVC. None in the chest. OTHER: No other significant finding. IMPRESSION: 1. Status post placement right internal jugular venous line, tip suggested within the s uperior vena cava appear no pneumothorax. TECHNICAL DOCUMENTATION: JOB ID: [id number] 2010 [employer]- All Rights Reserved Reading location - IP/workstation name: [email or web address]
--- NOTE | 2019-12-27 18:39 | ER Document Report ---
Entered by FOREIGN YOUSSEF SCRIBE 12/27/19 [id number] Acting as scribe for:EDMUNDO SALTER MD ED General - General Chief Complaint: Altered Mental Status Stated Complaint: ALTERED MENTAL STATUS Primary Care Provider: KENA JACOME MD [Primary Care Provider] - Follow up as needed Information source: Emergency Med Personnel Cannot obtain history due to: Altered mental status Notes: This 74 year old male patient presents to the emergency department today with arrival by EMS. Patient's history was obtained by EMS due to the patient's altered mental status. Patient's family lives in another state and has not heard from him the past x2 days. Patient's family called EMS to check on him and was found unconscious on the floor in his feces. TRAVEL OUTSIDE OF THE [place] IN LAST 30 DAYS: No - Related Data Allergies/Adverse Reactions: febuxostat [From Uloric] Allergy (Mild, Verified 02/01/13 13:05) blurry vision Past Medical History - General Information source: Emergency Med Personnel Cannot obtain history due to: Altered mental status - Social History Smoking Status: Unknown if Ever Smoked Family History: None - Past Medical History Cardiac Medical History: Reports: Hx Hypertension - meds Review of Systems - Review of Systems -: Yes ROS unobtainable due to patient's medical condition Physical Exam - Vital signs Vitals: Pulse Resp BP 97 33 H 64/20 L 12/27/19 11:38 12/27/19 11:38 12/27/19 11:38 - General General appearance: Other - Barely responsive.. No: Alert - HEENT Head: Normocephalic, Atraumatic Pupils: No: PERRL - Pupils are midline. - Respiratory Chest status: Nontender Chest palpation: Normal - Cardiovascular Normal capillary refill: No - Prolonged capillary refill Notes: Patient is systolic. - Abdominal Inspection: Morbidly Obese Distension: No distension Bowel sounds: Normal Tenderness: Tender - Rectal Tenderness: Yes Stool: Other - Brown - Extremities General upper extremity: Other - No motor control. General lower extremity: Other - Lower extremities are contracted. Hip: Other - Tenderness with palpation to the right hip. - Neurological Motor strength normal: No: LUE, RUE Notes: No motor control of upper extremities. - Skin Skin Moisture: Dry Skin Color: Ecchymosis Course - Re-evaluation Re-evalutation: 12/27/19 17:57 Patient in altered mental status obtunded state. 12/27/19 18:10 Case discussed with the patient's daughter. She reports that patient is a DNR although he does not have a stop sleep at this authorized. I asked whether not he wanted dialysis tonight and she was not sure that and I told her we was transferring patient to another hospital so that he could receive dialysis. - Vital Signs Vital signs: Temp Pulse Resp BP Pulse Ox 95.0 F L 97 29 H 59/35 L 100 12/27/19 15:26 12/27/19 11:38 12/27/19 18:11 12/27/19 18:11 12/27/19 18:11 12/27/19 17:58 Patient is hypotensive septic acute renal failure dehydration acidotic and hyperkalemic. - Laboratory Result Diagrams: 12/27/19 13:05 12/27/19 17:00 Laboratory results interpreted by me: 12/27/19 12/27/19 12/27/19 11:57 13:05 13:05 WBC 20.8 H RBC 5.60 H RDW 16.6 H Seg Neuts % (Manual) 87 H Band Neutrophils % 1 L Lymphocytes % (Manual) 7 L Abs Neuts (Manual) 18.3 H PT 16.5 H D-Dimer 12.86 H VBG pH VBG HCO3 Sodium Potassium Carbon Dioxide Anion Gap BUN Creatinine Est GFR ( Amer) Est GFR (MDRD) Non-Af Glucose POC Glucose 142 H Lactic Acid AST ALT Ammonia Creatine Kinase NT-Pro-B Natriuret Pep Albumin Urine Protein Urine Glucose (UA) Urine Blood Ur Leukocyte Esterase Acetaminophen 12/27/19 12/27/19 12/27/19 13:05 13:05 13:05 WBC RBC RDW Seg Neuts % (Manual) Band Neutrophils % Lymphocytes % (Manual) Abs Neuts (Manual) PT D-Dimer VBG pH 6.93 L* VBG HCO3 9.4 L Sodium Potassium 6.5 H* Carbon Dioxide 10 L* Anion Gap 23 H BUN 134 H Creatinine 13.65 H Est GFR ( Amer) 4 L Est GFR (MDRD) Non-Af 4 L Glucose 123 H POC Glucose Lactic Acid 4.7 H AST 462 H ALT 76 H Ammonia Creatine Kinase 23263 H NT-Pro-B Natriuret Pep Albumin 3.3 L Urine Protein Urine Glucose (UA) Urine Blood Ur Leukocyte Esterase Acetaminophen < 10 L 12/27/19 12/27/19 12/27/19 13:05 13:36 14:19 WBC RBC RDW Seg Neuts % (Manual) Band Neutrophils % Lymphocytes % (Manual) Abs Neuts (Manual) PT D-Dimer VBG pH VBG HCO3 Sodium Potassium Carbon Dioxide Anion Gap BUN Creatinine Est GFR ( Amer) Est GFR (MDRD) Non-Af Glucose POC Glucose Lactic Acid AST ALT Ammonia 53.9 H Creatine Kinase NT-Pro-B Natriuret Pep 451 H Albumin Urine Protein 30 H Urine Glucose (UA) 50 H Urine Blood SMALL H Ur Leukocyte Esterase MODERATE H Acetaminophen 12/27/19 12/27/19 17:00 17:00 WBC RBC RDW Seg Neuts % (Manual) Band Neutrophils % Lymphocytes % (Manual) Abs Neuts (Manual) PT D-Dimer VBG pH VBG HCO3 Sodium 136.8 L Potassium 6.0 H* Carbon Dioxide 10 L* Anion Gap 23 H BUN 132 H Creatinine 13.28 H Est GFR ( Amer) 4 L Est GFR (MDRD) Non-Af 4 L Glucose POC Glucose Lactic Acid 3.2 H AST ALT Ammonia Creatine Kinase NT-Pro-B Natriuret Pep Albumin Urine Protein Urine Glucose (UA) Urine Blood Ur Leukocyte Esterase Acetaminophen - Diagnostic Test Radiology reviewed: Image reviewed, Reports reviewed Radiology results interpreted by me: 12/27/19 17:58 CT head negative no acute stroke some microvascular ischemic changes noted. CT C-spine no acute process degenerative changes but no fracture. CT chest no acute process. CT abdomen and pelvis shows a hernia of small bowel in the left lower quadrant midline region it appears that small bowel is perhaps incarcerated in the hernia. 12/27/19 17:59 Right femur x-ray no acute process. 12/27/19 18:35 Chest x-ray post intubation and NG tube shows NG tube in place the ET tube can be pushed down further 2 cm. - EKG Interpretation by Me Additional EKG results interpreted by me: 12/27/19 18:01 Twelve-lead EKG shows normal sinus rhythm rate of 99 nonspecific T wave changes in inferior leads otherwise no acute process. Procedures - Central Line Right Internal jugular Time completed: 05:30 Consent obtained: Yes Central line pre-insertion: Sterile PPE donned, Chloraprep applied, Sterile drapes applied Central line lumen type: Triple Ultrasound guided: Yes CM at insertion site: 22 Line secured with sutures: Yes Central line post-insertion: Blood return from lumens, Biopatch applied, Sutured Number of attempts: 3 Complications: No - Intubation Orotracheal Airway evaluation: Normal anatomy, Large tongue Mallampati Classification: Class 3 Medications: Etomidate, Vecuronium Intubation method: Orotracheal Blade type: Dawna Blade size: 3 Equipment used: Glidescope ETT size: 7.5 End tidal CO2 confirmed: Yes Intubation Complications: No complications Notes: 12/27/19 18:38 No ventilator settings were sent because patient is to transport team is here to take him to [facility] in [facility]. Critical Care Note - Critical Care Note Total time excluding time spent on procedures (mins): 69 - Management of fluid hydration sepsis infection hyperkalemia diarrhea. Consult with attendings and associate scientist and canvas goods supervisor. Discharge - Discharge Clinical Impression: Lactic acid acidosis, Hyperkalemia, ARF (acute renal failure) with cortical necrosis, Dehydration, Sepsis Hypotension Qualifiers: Hypotension type: hypotension due to hypovolemia Qualified Code(s): I95.89 - Other hypotension Condition: Critical Disposition: [facility] Referrals: KENA JACOME MD [Primary Care Provider] - Follow up as needed I personally performed the services described in the documentation, reviewed and edited the documentation which was dictated to the scribe in my presence, and it accurately records my words and actions.
[2019-12-27] MEDS ORDERED: ROCURONIUM BROMIDE INJ 50 MG/5 ML VIAL IV ONE ×2 (18:46→19:05)
[2019-12-27] MEDS ORDERED: ETOMIDATE INJ/PF 20 MG/10 ML SDV IV ONE ×2 (18:46→19:05)
--- NOTE | 2019-12-27 18:52 | RADIOLOGY REPORT (SQ) ---
EXAM DESCRIPTION: CHEST SINGLE VIEW IMAGES COMPLETED DATE/TIME: 12/27/2019 6:37 pm REASON FOR STUDY: post intubation COMPARISON: AP view of the chest from 12/27/2019 at 0557 hours. EXAM PARAMETERS: NUMBER OF VIEWS: One view. TECHNIQUE: An AP view of the chest was obtained. RADIATION DOSE: NA LIMITATIONS: None. FINDINGS: LUNGS AND PLEURA: Unchanged radiographic appearance of the lungs and pleura. MEDIASTINUM AND HILAR STRUCTURES: Stable mediastinal and hilar contours. HEART AND VASCULAR STRUCTURES: Stable cardiac silhouette. BONES: No acute findings. HARDWARE: The tip of the right IJ central venous catheter projects within the SVC. The tip and side hole of the enteric tube project within the gastric lumen. OTHER: No other finding. IMPRESSION: 1. The tip of the right IJ central venous catheter projects within the SVC. 2. The tip and side hole of the enteric tube project within the gastric lumen. TECHNICAL DOCUMENTATION: JOB ID: [id number] 2010 [employer]- All Rights Reserved Reading location - IP/workstation name: [email or web address]
[2019-12-27 19:24] VITALS: BP 98/53
--- NOTE | 2019-12-27 22:59 | EKG REPORT ---
SEVERITY:- ABNORMAL ECG - PROBABLE SINUS RHYTHM, REC REPEAT EKG NONSPECIFIC T ABNORMALITIES, INFERIOR LEADS : Confirmed by: Asuncion Lynne 27-Dec-2019 22:58:41
== END 2019-12-27 19:00 | disposition short-term general hospital (02) ==
LOC: ER 11:36
DX: A41.9 Sepsis, unspecified organism (principal); E87.5 Hyperkalemia; I12.9 Hypertensive chronic kidney disease with stage 1 through stage 4 chronic kidney disease, or unspecified chronic kidney disease; N18.9 Chronic kidney disease, unspecified; N17.1 Acute kidney failure with acute cortical necrosis; E86.1 Hypovolemia; E86.0 Dehydration; R19.7 Diarrhea, unspecified; K46.9 Unspecified abdominal hernia without obstruction or gangrene; R10.819 Abdominal tenderness, unspecified site; M47.812 Spondylosis without myelopathy or radiculopathy, cervical region; Z88.8 Allergy status to other drugs, medicaments and biological substances; Z20.828 Contact with and (suspected) exposure to other viral communicable diseases
CPT/HCPCS: 31500; 36556; 93005; 96376; 94640; 99291; 96361; 51702; 96375; 96365; 96366; 96367; 96368; 36415; 87040; 87045; 87070; 87205; 87880; 82962; 80307 ×3; 82140; 82550; 83605; 83690; 83735; 85025; 85610; 85730; 82270; 80053; 81001; 84484; 82533; 85379; 82803; 87804; 87324; 87449; 83880; 71045; 73552; 70450; 71250; 72125; 74176; 93010; U0003; J2250 ×2; J0610; J3490 ×6; J0171; C9113; A9270 ×3; J7060 ×2; J7030; J7120; J3370; J0692; 87635; J1815